=== PATIENT | female | born 1970 | race Caucasian/White ===

== ENCOUNTER → 2023-06-21 11:12 | Outpatient (REF) | payer OTHER, SELFPAY | LOC: HWRAD 11:12 | PROVIDERS: ATTENDING PHYSICIAN Chiropractor; FAMILY PHYSICIAN Family Medicine | DX: M54.12 Radiculopathy, cervical region (principal); M99.01 Segmental and somatic dysfunction of cervical region; M99.02 Segmental and somatic dysfunction of thoracic region; M53.2X7 Spinal instabilities, lumbosacral region | CPT/HCPCS: 72052; 72070; 72110 ==